=== PATIENT | female | born 1950 | race Caucasian/White ===

== ENCOUNTER 2024-12-06 06:41 | Outpatient (REF) | payer MEDICARE, SELFPAY ==
[2024-12-06 06:52] LABS: MANUAL DIFF FLAG NO
--- OUTSIDE RECORDS SUMMARY | 2024-12-06 06:52 | XMS_ITS | Clinical Summary ---
[facility] Organization [facility] it Address [address] [place] [address] Care Team Providers Care Business Continuity Manager Name Role Phone Grecia Hanson NP Primary Care Provider [phone] Surgical History Surgery Date Site/Laterality Comments HYSTERECTOMY PROCEDURE: HISTORICAL HYSTERECTOMY SECTION PROCEDURE: HISTORICAL DELIVERY Medical History Medical History Date Comments Hyperlipidemia 09/19/2017 DX:Hyperlipidemi a Lung nodule 09/19/2017 DX:Lung nodule Family History Medical History Relation Name Comments Allergies Mother Relation Name Status Comments Mother Social History Tobacco Use Types Packs/Day Years Used Date Smoking Tobacco: Light Smoker Cigarettes Last attempted t o quit: 05/18/2018 Smokeless Tobacco: Never Alcohol Use Standard Drinks/Week Comments Yes 0 (1 standard drink = 0.6 oz pur e alcohol) Comments Unknown Sex and Gender Information Value Date Recorded Sex Assigned at Not on file Legal Sex Female 9:56 AM EST Gender Identity Not on file Sexual Orientation Not on file Obstetrics History Last Filed Vital Signs Vital Sign Reading Time Taken Comments Blood Pressure 159/72 08/01/2023 11:12 AM EDT Sitting L Arm Pulse 117 08/01/2023 11:12 AM EDT Temperature - - Respiratory Rate - - Oxygen Saturation 98% 07/17/2023 11: 51 AM EDT on 3lt O2 Inhaled Oxygen Concentration - - Weight 43.7 kg (96 lb 4.8 oz) 11:12 AM EDT Height 157.5 cm (5' 2 ) 07/17/2023 11:5 1 AM EDT Body Mass Index 17.61 07/17/2023 11:51 AM EDT Plan of Treatment Health Maintenance Due Date Last Done Comments Breast Cancer Screening 1950 Colorectal Cancer Screening: Colonoscopy 1950 RSV Immunization Adult Patients (1 - Risk 50-74 years 1-dose series) 2000 Zoster Vaccines (2 of 3) 01/15/2011 11/20/2010 Pneumococcal Vaccine: 50+ Years (2 of 2 - PCV) 07/06/2016 07/07/2015 Cholesterol Screening (Lipid Panel) 01/20/2022 Falls Risk Assessment 01/20/2022 Hepatitis C Screening 01/20/2022 Osteoporosis Screening (Bone Density Screening) 01/20/2022 Social Influencers of Health Screening 01/20/2022 DTaP,Tdap,and Td Vaccines (2 - Td or Tdap) 05/07/2023 05/06/2013 Depression Screening 02/18/2024 COVID-19 Vaccine ( - season) 2024 Influenza Vaccine (#1) 2024 6, 11/22/2014, 12/07/2013, Additional history exists HIB Vaccines Aged Out No longer eligi ble based on patient's age to complete this topic HPV Vaccines Aged Out No longer eligi ble based on patient's age to complete this topic Hepatitis A Vaccines Aged Out No long er eligible based on patient's age to complete this topic Hepatitis B Vaccines Aged Out No long er eligible based on patient's age to complete this topic IPV Vaccines Aged Out No longer eligi ble based on patient's age to complete this topic MMR Vaccines Aged Out No longer eligi ble based on patient's age to complete this topic Meningococcal ACWY Vaccine Aged Out N o longer eligible based on patient's age to complete this topic Meningococcal B Vaccine Aged Out No l onger eligible based on patient's age to complete this topic RSV Immunization Patients Under 20 months Aged Out No longer eligible based on patient's age to complete this topic Varicella Vaccines Aged Out No longer eligible based on patient's age to complete this topic Care Teams Business Continuity Manager Relationship Specialty Start Date End Date Grecia Hanson NP [address] [place] [address] PCP - General Internal Medicine 08/25/17
[2024-12-06 07:05] LABS: Hematocrit 35.0 % (37.0-47.0); Hemoglobin 11.7 g/dl (12.0-16.0); Imm Gran Abs Auto 0.06 X10*3/uL (0.00-0.03); Imm Gran Pct Auto 0.6 % (0.0-0.4); Lymphocytes Absolute Auto 2.2 X10*3/uL (1.2-4.9); Mean Corpuscular HGB Conc 33.4 g/dl (31.0-35.0); Mean Corpuscular Hemoglobin 32.2 pg (27.0-33.0); Mean Corpuscular Volume 96.4 fL (80.0-98.0); NRBC Abs Auto 0.000 X10*3/uL (0.0-0.012); NRBC Pct Auto 0.0 /100WBC (0.0-0.2); Platelet Count 232 X10*3/uL (160-400); Red Blood Count 3.63 X10*6/uL (4.20-5.50); White Blood Count 9.5 X10*3/uL (4.8-10.8)
[2024-12-06 07:18] LABS: Hemoglobin A1C 126.3591 umol/L
[2024-12-06 07:24] LABS: Alanine Aminotransferase 59 U/L (0-31); Albumin Level 3.5 g/dL (3.5-5.0); Alkaline Phosphatase 67 U/L (39-117); Anion Gap 14 (12-20); Aspartate Amino Transferase 30 U/L (5-31); Blood Urea Nitrogen 16 mg/dL (9-16); Calcium 8.7 mg/dL (8.4-10.2); Carbon Dioxide 27 mmol/L (22-29); Chloride 104 mmol/L (96-108); Estimated Glomerular Filt Rate > 60; Potassium 3.0 mmol/L (3.3-5.1); Sodium 142 mmol/L (135-145); Total Protein 5.2 g/dL (6.5-8.0)
== END 2024-12-06 06:42 | disposition home or self-care (01) ==
LOC: HO.MMNH1L 06:41
PROVIDERS: Visit Provider Physician Assistant Medical
DX: J96.01 Acute respiratory failure with hypoxia (principal); J44.1 Chronic obstructive pulmonary disease with (acute) exacerbation; Z13.1 Encounter for screening for diabetes mellitus
CPT/HCPCS: 36415; 80053; 83036; 85025

== ENCOUNTER 2024-12-08 05:47 | Outpatient (REF) | payer MEDICARE, SELFPAY ==
--- OUTSIDE RECORDS SUMMARY | 2024-12-08 05:49 | XMS_ITS | Clinical Summary ---
[facility] Organization [facility] it Address [address] [place] [address] Care Team Providers Care Iuss Master Analyst Name Role Phone Grecia Hanson NP Primary Care Provider [phone] Surgical History Surgery Date Site/Laterality Comments HYSTERECTOMY [...] age to complete this topic Care Teams Iuss Master Analyst Relationship Specialty Start Date End Date Grecia Hanson NP [address] [place] [address] PCP - General Internal Medicine 08/25/17
[2024-12-08 06:32] LABS: Anion Gap 11 (12-20); Blood Urea Nitrogen 13 mg/dL (9-16); Calcium 8.8 mg/dL (8.4-10.2); Carbon Dioxide 31 mmol/L (22-29); Chloride 105 mmol/L (96-108); Estimated Glomerular Filt Rate > 60; Potassium 3.2 mmol/L (3.3-5.1); Sodium 144 mmol/L (135-145)
== END 2024-12-08 05:48 | disposition home or self-care (01) ==
LOC: HO.MMNH1L 05:47
PROVIDERS: Visit Provider Physician Assistant Medical
DX: J96.01 Acute respiratory failure with hypoxia (principal); J96.02 Acute respiratory failure with hypercapnia; J44.1 Chronic obstructive pulmonary disease with (acute) exacerbation
CPT/HCPCS: 36415; 80048